=== PATIENT | male | born 1970 | race Caucasian/White ===

== ENCOUNTER 2022-08-09 12:08 | Emergency (ER) | payer SELFPAY ==
[~2022-08-09] VITALS: Ht 165.1 cm; Wt 70.0 kg
[2022-08-09 12:18] VITALS: BP 139/90
[2022-08-09] MEDS ORDERED: AMOX1TAB16 MT (18:57)
[2022-08-09] MEDS ORDERED: IBUP-2028 MT (18:57)
[2022-08-09] MEDS ORDERED: TETANUS, DIPHTHERIA, PERTUSSIS VAC/PF 0.5ML (>10YR OLD) IM ONE (19:00)
== END 2022-08-09 19:18 | disposition home or self-care (01) ==
LOC: ER 12:08
DX: S90.512A Abrasion, left ankle, initial encounter (principal); W54.0XXA Bitten by dog, initial encounter; Y93.89 Activity, other specified; Y92.89 Other specified places as the place of occurrence of the external cause; Y99.8 Other external cause status
CPT/HCPCS: 73610; 90471; 90715; 99283